=== PATIENT | female | born 1995 | race Hispanic/Latino ===

== ENCOUNTER 2018-04-19 07:43 | Inpatient (IN) | payer MEDICAID ==
[2018-04-19] MEDS ORDERED: CERVIDIL VG ONE ×2 (07:57→19:00)
--- NOTE | 2018-04-19 08:10 | History and Physical Report ---
History of Present Illness Date of examination: 04/19/18 Date of admission: 04/19/18 07:43 Chief complaint: IOL for pre-e superimposed on chtn @ 37 weeks per [facility] History of present illness: EDC Calculations LMP: 05/10/2018 Past History : 2 Term Births: 0 Living Children: 0 Para: 0 Spont. Ab: 1 Past Medical History: Diabetes ? Hypertension ? Anxiety Past Surgical History: negative Past Medical History Anesthesia Complications: negative Anemia: negative Autoimmune Disorder: negative Bleeding Disorder: negative Blood Transfusions: negative Breast Disease: negative Diabetes: negative Heart Disease: negative Hypertension: positive Hepatitis/Liver Disease: negative Kidney Disease/UTI: negative Neurologic/Epilepsy/Migraines: negative Phlebitis/Varicosities: negative Psychiatric: positive Pulmonary Disease/Asthma: negative Thyroid Disease: negative Hospitalizations: negative Surgery (Non-machine set up): negative Abnormal PAP: negative Family Hx: Mother - DM & HTN 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 of genital herpes: no Partner hx. of genital herpes: no Rash, Viral, or Febrile illness since last LMP? no Varicella/Chicken Pox Status: Immunized Genetic History Congenital Heart Defect: Mom: no Dad: no Norma Disease: Mom: no Dad: no Thalassemia Mom: no Dad: no Neural Tube Defect Mom: no Dad: no Down's Syndrome Mom: no Dad: no Feliciano-Sachs Mom: no Dad: no Sickle Cell Disease/Trait Mom: no Dad: no Hemophilia Mom: no Dad: no Muscular Dystrophy Mom: no Dad: no Cystic Fibrosis Mom: no Dad: no Chel Chorea Mom: no Dad: no Mental Retardation Mom: no Dad: no Fragile X Mom: no Dad: no Other Genetic/Chromosomal Disorder Mom: no Dad: no Child w/other defect Mom: no Dad: no Enviromental Exposures Xray Exposure: no Medication, drug, or alcohol use since LMP: no Chemical/Other Exposure: no Exposure to Cat Liter: no Hx of Parvovirus (Fifth Disease): no Occupational Exposure to Children: none Active Medications: MACROBID 100 MG ORAL CAPSULE (NITROFURANTOIN MONOHYD MACRO) 1 bid po Current Allergies: * SULFA (Critical) * PENICILLAN (Critical) Past History Past Medical History: other (see HPI) Past Surgical History: other (see HPI) 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 Pt states she completed medication), other (see HPI) Family/Genetic History: other (see HPI) - Obstetrical History Expected Date of Delivery: 05/10/18 Actual Gestation: 37 Week(s) 0 Day(s) : 2 Para: 0 Hx # Term Pregnancies: 0 Number of Pregnancies: 0 Spontaneous Abortions: 1 Induced : 0 Number of Living Children: 0 Medications and Allergies Allergies Allergy/AdvReac Type Severity Reaction Status Date / Time Penicillins Allergy Hives Verified 04/19/18 09:16 Active Meds: Active Medications Dinoprostone (Cervidil) 10 mg VG ONCE ONE Stop: 04/19/18 07:58 Ephedrine Sulfate (Ephedrine Sulfate) 10 mg IV Q2M PRN PRN Reason: Hypotension Lactated Ringer's (Lactated Ringers) 1,000 mls @ 125 mls/hr IV DIRECT NICOLLE Oxytocin/Sodium Chloride (Pitocin/Ns 20 Unit/1000ml Drip) 20 units in 1,000 mls @ 125 mls/hr IV DIRECT NICOLLE Lidocaine (Xylocaine 2%) 20 ml INFILTRATI ONCE ONE Stop: 04/19/18 07:58 Mineral Oil (Mineral Oil) 30 ml PO QHS PRN PRN Reason: Constipation Ondansetron HCl (Zofran) 4 mg IV Q8H PRN PRN Reason: Nausea And Vomiting Terbutaline Sulfate (Brethine) 0.25 mg SUB-Q ONCE PRN PRN Reason: Hyperstimulation/Hypertonicity Review of Systems All systems: negative - Physical Exam Breasts: Positive: normal Cardiovascular: Regular rate Lungs: Positive: Clear to auscultation, Normal air movement Abdomen: Positive: normal appearance, soft Genitourinary (Female): Positive: normal external genitalia, normal perenium Vulva: both: normal Vagina: Positive: normal moisture Uterus: Positive: normal size, normal contour Anus/Rectum: Positive: normal perianal skin Extremities: Positive: normal Deep Tendon Reflex Grade: Normal +2 - Obstetrical FHR: category 1 Uterine Contraction Monitor Mode: External Cervical Dilatation: 1 (vertex) Cervical Effacement Percentage: 50 station: -2 Uterine Contraction Pattern: Irregular Uterine Tone Measurement Phase: Resting Uterine Contraction Intensity: Mild Results All other labs normal. Assessment and Plan 22 y/o @ 37+0 admitted for IOL d/t chtn w/ superimposed pre-e, advised IOL today by AMFM based on 24h urine with TP >300. GBS neg. Admission orders in EMR. Plan for serial IOL, active management pitocin today. Discussed nature of serial IOL and potential for IOL for several days before delivery. All questions addressed. - Patient Problems (1) Pre-eclampsia superimposed on chronic hypertension Current Visit: Yes Status: Acute (2) Seizure Current Visit: Yes Status: Acute Plan to address problem: treated with Keppra in the past but currently not on medication. pt did not f/u with neuro as directed. no known seizure activity during the (3) Anxiety Current Visit: Yes Status: Acute (4) 37 weeks gestation of Current Visit: Yes Status: Acute
[2018-04-19] MEDS ORDERED: ZOFRAN IV PRN (09:30)
[2018-04-19] MEDS ORDERED: BRETHINE SUB-Q PRN (09:30)
[2018-04-19] MEDS ORDERED: PITOCin/NS 30 UNIT/500ML 30 UNITS/500 ML BAG IV SCH (09:30)
[2018-04-19] MEDS ORDERED: MINERAL OIL PO PRN (09:30)
[2018-04-19] MEDS ORDERED: XYLOCAINE 2% INFILTRATI NR (09:30)
[2018-04-19] MEDS ORDERED: PITOCin/NS 20 UNIT/1000ML DRIP 20 UNITS/1,000 ML BAG IV SCH (09:30)
[2018-04-19 09:43] LABS: Hematocrit 30.7 % (30.3-42.9); Hemoglobin 10.7 gm/dl (10.1-14.3); Mean Corpuscular HGB Conc 35 % (30-34); Mean Corpuscular Volume 79 fl (79-97); Platelet Count 165 K/mm3 (140-440); Red Cell Distribution Width 13.6 % (13.2-15.2)
[2018-04-19] MEDS: LACTATED RINGERS 1,000 ML IV SCH (09:53)
[2018-04-19 10:08] LABS: Alanine Aminotransferase 11 units/L (7-56); Uric Acid 3.9 mg/dL (3.5-7.6)
[2018-04-19 10:29] LABS: Bilirubin,Urine NEG (Negative); Blood,Urine NEG (Negative); Color,Urine Straw (Yellow); Protein,Urine <15 mg/dL mg/dL (Negative); Urobilinogen,Urine < 2.0 mg/dL (<2.0)
[2018-04-19] MEDS ORDERED: TYLENOL PO ONE (13:12)
[2018-04-19] MEDS ORDERED: MAGNESIUM SULFATE 4GM/100ML 4 GM/100 ML BAG IV ONE (17:18)
--- NOTE | 2018-04-19 17:21 | Event Note ---
Date: 04/19/18 Called by RN due to pt having elevated blood pressures in the 160s/100s ranges. Will start MgSO4 at this time. If cx unchanged after pitcion for the balance of the day will d/c and do pericare, allow dinner and start cervidil there after. Plan of care d/w RN and provider will d/w plan of care as well and address and questions she may have.
[2018-04-19] MEDS: MAGNESIUM SULFATE 40GM/1000ML 40 GM/1,000 ML BAG IV SCH (18:23)
[2018-04-19] MEDS ORDERED: XYLOCAINE TOPICAL 2% 5ML TP ONE (19:05)
[2018-04-19] MEDS ORDERED: AMBIEN PO ONE (21:00)
--- NOTE | 2018-04-19 22:01 | Event Note ---
Date: 04/19/18 Brief episode of and maternal tachycardia noted for about 30 minutes. Good variability noted. Relieved with O2 and position change. Currently back at baseline of 150. Currently with cervidil in place and no sx of hyperstimulation noted. Currently Cat I tracing. Will con't to closely monitor.
[2018-04-20] MEDS ORDERED: PEPCID IV ONE (05:33)
[2018-04-20] MEDS ORDERED: PITOCin/NS 30 UNIT/500ML 30 UNITS/500 ML BAG IV SCH (08:00)
[2018-04-20] MEDS ORDERED: BICITRA PO ONE (08:45)
--- NOTE | 2018-04-20 10:56 | Progress Note ---
Assessment and Plan 22y/o dx with pre-e, cervidil removed. SVE unchanged. discussed options for IOL - pt verbalizes understanding and agreement with AROM. IUPC and ISE placed without difficulty. Clear fluid noted. Plan discussed for pitocin and epidural as needed. All questions addressed. Visitation policy reviewed - limit visitors and stimulus d/t elevated b/p. No more ambulating to bathroom while on mag sulfate. reviewed expectations for mag sulfate and resendez x 24h post delivery. All questions addressed, pt verbalized understanding. - Patient Problems (1) Pre-eclampsia superimposed on chronic hypertension Current Visit: Yes Status: Acute (2) Seizure Current Visit: Yes Status: Acute (3) Anxiety Current Visit: Yes Status: Acute (4) 37 weeks gestation of Current Visit: Yes Status: Acute Subjective - Subjective Date of service: 04/20/18 Principal diagnosis: IUP @ 37+1, pre-e, IOL Interval history: EDC Calculations LMP: 05/10/2018 Past History : 2 Term Births: 0 Living Children: 0 Para: 0 Spont. Ab: 1 Past Medical History: Diabetes ? Hypertension ? Anxiety Past Surgical History: negative Past Medical History Anesthesia Complications: negative Anemia: negative Autoimmune Disorder: negative Bleeding Disorder: negative Blood Transfusions: negative Breast Disease: negative Diabetes: negative Heart Disease: negative Hypertension: positive Hepatitis/Liver Disease: negative Kidney Disease/UTI: negative Neurologic/Epilepsy/Migraines: negative Phlebitis/Varicosities: negative Psychiatric: positive Pulmonary Disease/Asthma: negative Thyroid Disease: negative Hospitalizations: negative Surgery (Non-armorer technician): negative Abnormal PAP: negative Family Hx: Mother - DM & HTN 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 of genital herpes: no Partner hx. of genital herpes: no Rash, Viral, or Febrile illness since last LMP? no Varicella/Chicken Pox Status: Immunized Genetic History Congenital Heart Defect: Mom: no Dad: no Norma Disease: Mom: no Dad: no Thalassemia Mom: no Dad: no Neural Tube Defect Mom: no Dad: no Down's Syndrome Mom: no Dad: no Feliciano-Sachs Mom: no Dad: no Sickle Cell Disease/Trait Mom: no Dad: no Hemophilia Mom: no Dad: no Muscular Dystrophy Mom: no Dad: no Cystic Fibrosis Mom: no Dad: no Page Chorea Mom: no Dad: no Mental Retardation Mom: no Dad: no Fragile X Mom: no Dad: no Other Genetic/Chromosomal Disorder Mom: no Dad: no Child w/other defect Mom: no Dad: no Enviromental Exposures Xray Exposure: no Medication, drug, or alcohol use since LMP: no Chemical/Other Exposure: no Exposure to Cat Liter: no Hx of Parvovirus (Fifth Disease): no Occupational Exposure to Children: none Active Medications: MACROBID 100 MG ORAL CAPSULE (NITROFURANTOIN MONOHYD MACRO) 1 bid po Current Allergies: * SULFA (Critical) * PENICILLAN (Critical) Patient reports: movement normal, other (substernal pain that radiated to back that may or may not feel like indigestion), no new complaints (denies GARCIA or visual changes) Objective - Vital Signs Vital Signs: Vital Signs - 12hr 04/19/18 04/19/18 04/19/18 22:53 22:55 22:58 Temperature Pulse Rate 109 H 109 H 108 H Respiratory Rate Blood Pressure 143/75 O2 Sat by Pulse 98 97 Oximetry 04/19/18 04/19/18 04/19/18 23:03 23:08 23:13 Temperature Pulse Rate 118 H 120 H 115 H Respiratory Rate Blood Pressure O2 Sat by Pulse 99 99 100 Oximetry 04/19/18 04/19/18 04/19/18 23:18 23:23 23:25 Temperature Pulse Rate 112 H 107 H 107 H Respiratory Rate Blood Pressure 150/68 O2 Sat by Pulse 100 100 Oximetry 04/19/18 04/19/18 04/19/18 23:28 23:33 23:38 Temperature Pulse Rate 110 H 103 H 114 H Respiratory Rate Blood Pressure O2 Sat by Pulse 100 100 100 Oximetry 04/19/18 04/19/18 04/19/18 23:43 23:48 23:53 Temperature Pulse Rate 110 H 118 H 120 H Respiratory Rate Blood Pressure O2 Sat by Pulse 100 100 100 Oximetry 04/19/18 04/19/18 04/20/18 23:56 23:58 00:03 Temperature Pulse Rate 110 H 121 H 111 H Respiratory Rate Blood Pressure 138/84 O2 Sat by Pulse 100 99 Oximetry 04/20/18 04/20/18 04/20/18 00:08 00:13 00:22 Temperature Pulse Rate 106 H 115 H 129 H Respiratory Rate Blood Pressure O2 Sat by Pulse 99 100 88 Oximetry 04/20/18 04/20/18 04/20/18 00:23 00:25 00:28 Temperature Pulse Rate 114 H 115 H 122 H Respiratory Rate Blood Pressure 125/77 O2 Sat by Pulse 98 98 Oximetry 04/20/18 04/20/18 04/20/18 00:33 00:38 00:43 Temperature Pulse Rate 121 H 125 H 116 H Respiratory Rate Blood Pressure O2 Sat by Pulse 98 98 98 Oximetry 04/20/18 04/20/18 04/20/18 00:48 00:53 00:55 Temperature Pulse Rate 121 H 124 H 113 H Respiratory Rate Blood Pressure 141/73 O2 Sat by Pulse 97 99 Oximetry 04/20/18 04/20/18 04/20/18 00:58 01:03 01:08 Temperature Pulse Rate 120 H 110 H 112 H Respiratory Rate Blood Pressure O2 Sat by Pulse 96 98 99 Oximetry 04/20/18 04/20/18 04/20/18 01:13 01:18 01:23 Temperature Pulse Rate 119 H 118 H 108 H Respiratory Rate Blood Pressure O2 Sat by Pulse 99 99 99 Oximetry 04/20/18 04/20/18 04/20/18 01:25 01:28 01:33 Temperature Pulse Rate 108 H 118 H 125 H Respiratory Rate Blood Pressure 146/87 O2 Sat by Pulse 98 99 Oximetry 04/20/18 04/20/18 04/20/18 01:38 01:43 01:48 Temperature Pulse Rate 108 H 120 H 111 H Respiratory Rate Blood Pressure O2 Sat by Pulse 100 100 100 Oximetry 04/20/18 04/20/18 04/20/18 01:53 01:55 01:59 Temperature Pulse Rate 113 H 104 H 140 H Respiratory Rate Blood Pressure 140/83 O2 Sat by Pulse 99 98 Oximetry 04/20/18 04/20/18 04/20/18 02:19 02:27 02:40 Temperature 98.7 F Pulse Rate 134 H 118 H Respiratory 18 Rate Blood Pressure 127/66 O2 Sat by Pulse 100 Oximetry 04/20/18 04/20/18 04/20/18 03:10 03:15 03:20 Temperature Pulse Rate 108 H 106 H 114 H Respiratory Rate Blood Pressure O2 Sat by Pulse 99 100 100 Oximetry 04/20/18 04/20/18 04/20/18 03:25 03:30 03:35 Temperature Pulse Rate 120 H 117 H 115 H Respiratory Rate Blood Pressure O2 Sat by Pulse 100 100 100 Oximetry 04/20/18 04/20/18 04/20/18 03:40 03:45 03:50 Temperature Pulse Rate 125 H 118 H 123 H Respiratory Rate Blood Pressure O2 Sat by Pulse 100 100 100 Oximetry 04/20/18 04/20/18 04/20/18 03:55 04:00 04:05 Temperature Pulse Rate 113 H 108 H 115 H Respiratory Rate Blood Pressure O2 Sat by Pulse 100 100 100 Oximetry 04/20/18 04/20/18 04/20/18 04:10 04:15 04:20 Temperature Pulse Rate 112 H 126 H 112 H Respiratory Rate Blood Pressure O2 Sat by Pulse 99 100 100 Oximetry 04/20/18 04/20/18 04/20/18 04:25 04:28 04:30 Temperature Pulse Rate 120 H 113 H 112 H Respiratory Rate Blood Pressure 150/86 O2 Sat by Pulse 99 98 Oximetry 04/20/18 04/20/18 04/20/18 04:35 04:40 04:45 Temperature Pulse Rate 105 H 117 H 110 H Respiratory Rate Blood Pressure O2 Sat by Pulse 97 98 98 Oximetry 04/20/18 04/20/18 04/20/18 04:50 04:55 05:00 Temperature Pulse Rate 102 H 142 H 108 H Respiratory Rate Blood Pressure O2 Sat by Pulse 98 99 100 Oximetry 04/20/18 04/20/18 04/20/18 05:05 05:10 05:15 Temperature Pulse Rate 114 H 108 H 118 H Respiratory Rate Blood Pressure O2 Sat by Pulse 98 100 100 Oximetry 04/20/18 04/20/18 04/20/18 05:20 05:25 05:29 Temperature Pulse Rate 109 H 107 H 107 H Respiratory Rate Blood Pressure 143/87 O2 Sat by Pulse 100 99 Oximetry 04/20/18 04/20/18 04/20/18 05:30 05:35 05:40 Temperature Pulse Rate 106 H 106 H 108 H Respiratory Rate Blood Pressure O2 Sat by Pulse 100 100 100 Oximetry 04/20/18 04/20/18 04/20/18 05:45 05:50 05:55 Temperature Pulse Rate 112 H 111 H 117 H Respiratory Rate Blood Pressure O2 Sat by Pulse 100 100 100 Oximetry 04/20/18 04/20/18 04/20/18 06:00 06:13 06:18 Temperature Pulse Rate 108 H 110 H 102 H Respiratory Rate Blood Pressure O2 Sat by Pulse 100 100 100 Oximetry 04/20/18 04/20/18 04/20/18 06:23 06:28 06:33 Temperature Pulse Rate 111 H 108 H 111 H Respiratory Rate Blood Pressure O2 Sat by Pulse 100 100 100 Oximetry 04/20/18 04/20/18 04/20/18 06:38 07:11 07:57 Temperature Pulse Rate 110 H 125 H 115 H Respiratory Rate Blood Pressure 129/74 143/98 O2 Sat by Pulse 99 Oximetry 04/20/18 04/20/18 04/20/18 07:58 08:03 08:08 Temperature Pulse Rate 108 H 99 H 99 H Respiratory Rate Blood Pressure O2 Sat by Pulse 96 97 98 Oximetry 04/20/18 04/20/18 04/20/18 08:13 08:18 08:23 Temperature Pulse Rate 105 H 104 H 98 H Respiratory Rate Blood Pressure O2 Sat by Pulse 98 98 99 Oximetry 04/20/18 04/20/18 04/20/18 08:28 08:33 08:38 Temperature Pulse Rate 105 H 103 H 94 H Respiratory Rate Blood Pressure 134/80 O2 Sat by Pulse 98 100 99 Oximetry 04/20/18 04/20/18 04/20/18 08:43 08:48 08:56 Temperature Pulse Rate 105 H 104 H 109 H Respiratory Rate Blood Pressure O2 Sat by Pulse 99 100 90 Oximetry 04/20/18 04/20/18 09:31 10:28 Temperature Pulse Rate 95 H 96 H Respiratory Rate Blood Pressure 155/90 138/89 O2 Sat by Pulse Oximetry - Exam Breasts: normal Cardiovascular: Regular rate Lungs: Clear to auscultation, Normal air movement Abdomen: Present: normal appearance, soft Vulva: both: normal Uterus: Present: normal FHR: auscultation normal, category 1 Uterine Contraction Monitor Mode: Internal Cervical Dilatation: 1.5 (AROM - ISE and IUPC placed) Cervical Effacement Percentage: 70 station: -1 Uterine Contraction Pattern: Irregular Uterine Tone Measurement Phase: Contraction Uterine Contraction Intensity: Mild Extremities: normal Deep Tendon Reflex Grade: Normal +2 - Labs Labs: Abnormal Labs 0204/19/18 04/19/18 08:45 08:45 10:12 MCH 27 L MCHC 35 H Creatinine 0.5 L Magnesium Lactate Dehydrogenase 241 H Urine pH 8.0 H 04/19/18 04/20/18 04/20/18 19:05 00:16 06:05 MCH MCHC Creatinine Magnesium 3.40 H 4.60 H 5.10 H Lactate Dehydrogenase Urine pH Laboratory Results - last 24 hr 04/19/18 04/19/18 04/20/18 08:45 19:05 00:16 Magnesium 3.40 H 4.60 H RPR Nonreactive 04/20/18 06:05 Magnesium 5.10 H RPR
[2018-04-20] MEDS ORDERED: MARCAINE 0.25% INFILTRATI ONE (11:59)
--- NOTE | 2018-04-20 12:14 | Anesthesia Consultation ---
Anesthesia Consult and Med Hx - Airway Anesthetic Teeth Evaluation: Good ROM Head & Neck: Adequate Mental/Hyoid Distance: Adequate Mallampati Class: Class II Intubation Access Assessment: Good - Pulmonary Exam CTA: Yes - Cardiac Exam Cardiac Exam: RRR - Pre-Operative Health Status ASA Pre-Surgery Classification: ASA2 Proposed Anesthetic Plan: Epidural - Pulmonary Hx Smoking: No Hx Asthma: No Hx Respiratory Symptoms: No SOB: No COPD: No Home Oxygen Therapy: No Hx Pneumonia: No Hx Sleep Apnea: No - Cardiovascular System Hx Hypertension: Yes Hx Coronary Artery Disease: No Hx Heart Attack/AMI: No Hx Angina: No Hx Percutaneous Transluminal Coronary Angioplasty (PTCA): No Hx Cardia Arrhythmia: No Hx Pacemaker: No Hx Internal Defibrillator: No Hx Valvular Heart Disease: No Hx Heart Murmur: No Hx Peripheral Vascular Disease: No - Central Nervous System Hx Neuromuscular Disorder: No Hx Seizures: Yes (last seizure "years ago") CVA: No Hx Back Pain: No Hx Psychiatric Problems: No - Gastrointestinal Hx Ulcer: No Hx Gastroesophageal Reflux Disease: Yes (with ) - Endocrine Hx Renal Disease: No Hx End Stage Renal Disease: No Hx Cirrhosis: No Hx Liver Disease: No Hx Insulin Dependent Diabetes: No Hx Non-Insulin Dependent Diabetes: No Hx Thyroid Disease: No Hx Hypothyroidism: No Hx Hyperthyroidism: No - Hematic Hx Anemia: Yes Hx Sickle Cell Disease: No - Other Systems Hx Alcohol Use: No Hx Substance Use: No Hx Cancer: No Hx Obesity: Yes (bmi 36)
[2018-04-20] MEDS ORDERED: BENADRYL IV PRN (12:15)
[2018-04-20] MEDS ORDERED: NARCAN 2 MG/2 ML IV PRN (12:15)
--- NOTE | 2018-04-20 12:44 | Progress Note ---
Assessment and Plan Patient resting, comfortable s/p epidural. Encouraged pt to rest while comfortable. Will continue to titrate pitocin as needed for adequate labor. IUPC working well, ISE not reading FHT, external monitor currently in place. Mag continues @ 2gm/hr. Dow to BSB. Will continue to monitor. - Patient Problems (1) Pre-eclampsia superimposed on chronic hypertension Current Visit: Yes Status: Acute (2) Seizure Current Visit: Yes Status: Acute (3) Anxiety Current Visit: Yes Status: Acute (4) 37 weeks gestation of Current Visit: Yes Status: Acute Subjective - Subjective Date of service: 04/20/18 Principal diagnosis: IUP @ 37+1, pre-e, IOL Interval history: EDC Calculations LMP: 05/10/2018 Past History : 2 Term Births: 0 Living Children: 0 Para: 0 Spont. Ab: 1 Past Medical History: Diabetes ? Hypertension ? Anxiety Past Surgical History: negative Past Medical History Anesthesia Complications: negative Anemia: negative Autoimmune Disorder: negative Bleeding Disorder: negative Blood Transfusions: negative Breast Disease: negative Diabetes: negative Heart Disease: negative Hypertension: positive Hepatitis/Liver Disease: negative Kidney Disease/UTI: negative Neurologic/Epilepsy/Migraines: negative Phlebitis/Varicosities: negative Psychiatric: positive Pulmonary Disease/Asthma: negative Thyroid Disease: negative Hospitalizations: negative Surgery (Non-exhaust emissions inspector): negative Abnormal PAP: negative Family Hx: Mother - DM & HTN 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 of genital herpes: no Partner hx. of genital herpes: no Rash, Viral, or Febrile illness since last LMP? no Varicella/Chicken Pox Status: Immunized Genetic History Congenital Heart Defect: Mom: no Dad: no Norma Disease: Mom: no Dad: no Thalassemia Mom: no Dad: no Neural Tube Defect Mom: no Dad: no Down's Syndrome Mom: no Dad: no Feliciano-Sachs Mom: no Dad: no Sickle Cell Disease/Trait Mom: no Dad: no Hemophilia Mom: no Dad: no Muscular Dystrophy Mom: no Dad: no Cystic Fibrosis Mom: no Dad: no [place] Chorea Mom: no Dad: no Mental Retardation Mom: no Dad: no Fragile X Mom: no Dad: no Other Genetic/Chromosomal Disorder Mom: no Dad: no Child w/other defect Mom: no Dad: no Enviromental Exposures Xray Exposure: no Medication, drug, or alcohol use since LMP: no Chemical/Other Exposure: no Exposure to Cat Liter: no Hx of Parvovirus (Fifth Disease): no Occupational Exposure to Children: none Active Medications: MACROBID 100 MG ORAL CAPSULE (NITROFURANTOIN MONOHYD MACRO) 1 bid po Current Allergies: * SULFA (Critical) * PENICILLAN (Critical) Patient reports: no new complaints (denies GARCIA or visual changes, comfortable s/p epidural) Objective - Vital Signs Vital Signs: Vital Signs - 12hr 04/20/18 04/20/18 04/20/18 00:38 00:43 00:48 Temperature Pulse Rate 125 H 116 H 121 H Respiratory Rate Blood Pressure O2 Sat by Pulse 98 98 97 Oximetry 04/20/18 04/20/18 04/20/18 00:53 00:55 00:58 Temperature Pulse Rate 124 H 113 H 120 H Respiratory Rate Blood Pressure 141/73 O2 Sat by Pulse 99 96 Oximetry 04/20/18 04/20/18 04/20/18 01:03 01:08 01:13 Temperature Pulse Rate 110 H 112 H 119 H Respiratory Rate Blood Pressure O2 Sat by Pulse 98 99 99 Oximetry 04/20/18 04/20/18 04/20/18 01:18 01:23 01:25 Temperature Pulse Rate 118 H 108 H 108 H Respiratory Rate Blood Pressure 146/87 O2 Sat by Pulse 99 99 Oximetry 04/20/18 04/20/18 04/20/18 01:28 01:33 01:38 Temperature Pulse Rate 118 H 125 H 108 H Respiratory Rate Blood Pressure O2 Sat by Pulse 98 99 100 Oximetry 04/20/18 04/20/18 04/20/18 01:43 01:48 01:53 Temperature Pulse Rate 120 H 111 H 113 H Respiratory Rate Blood Pressure O2 Sat by Pulse 100 100 99 Oximetry 04/20/18 04/20/18 04/20/18 01:55 01:59 02:19 Temperature Pulse Rate 104 H 140 H 134 H Respiratory Rate Blood Pressure 140/83 O2 Sat by Pulse 98 100 Oximetry 04/20/18 04/20/18 04/20/18 02:27 02:40 03:10 Temperature 98.7 F Pulse Rate 118 H 108 H Respiratory 18 Rate Blood Pressure 127/66 O2 Sat by Pulse 99 Oximetry 04/20/18 04/20/18 04/20/18 03:15 03:20 03:25 Temperature Pulse Rate 106 H 114 H 120 H Respiratory Rate Blood Pressure O2 Sat by Pulse 100 100 100 Oximetry 04/20/18 04/20/18 04/20/18 03:30 03:35 03:40 Temperature Pulse Rate 117 H 115 H 125 H Respiratory Rate Blood Pressure O2 Sat by Pulse 100 100 100 Oximetry 04/20/18 04/20/18 04/20/18 03:45 03:50 03:55 Temperature Pulse Rate 118 H 123 H 113 H Respiratory Rate Blood Pressure O2 Sat by Pulse 100 100 100 Oximetry 04/20/18 04/20/18 04/20/18 04:00 04:05 04:10 Temperature Pulse Rate 108 H 115 H 112 H Respiratory Rate Blood Pressure O2 Sat by Pulse 100 100 99 Oximetry 04/20/18 04/20/18 04/20/18 04:15 04:20 04:25 Temperature Pulse Rate 126 H 112 H 120 H Respiratory Rate Blood Pressure O2 Sat by Pulse 100 100 99 Oximetry 04/20/18 04/20/18 04/20/18 04:28 04:30 04:35 Temperature Pulse Rate 113 H 112 H 105 H Respiratory Rate Blood Pressure 150/86 O2 Sat by Pulse 98 97 Oximetry 04/20/18 04/20/18 04/20/18 04:40 04:45 04:50 Temperature Pulse Rate 117 H 110 H 102 H Respiratory Rate Blood Pressure O2 Sat by Pulse 98 98 98 Oximetry 04/20/18 04/20/18 04/20/18 04:55 05:00 05:05 Temperature Pulse Rate 142 H 108 H 114 H Respiratory Rate Blood Pressure O2 Sat by Pulse 99 100 98 Oximetry 04/20/18 04/20/18 04/20/18 05:10 05:15 05:20 Temperature Pulse Rate 108 H 118 H 109 H Respiratory Rate Blood Pressure O2 Sat by Pulse 100 100 100 Oximetry 04/20/18 04/20/18 04/20/18 05:25 05:29 05:30 Temperature Pulse Rate 107 H 107 H 106 H Respiratory Rate Blood Pressure 143/87 O2 Sat by Pulse 99 100 Oximetry 04/20/18 04/20/18 04/20/18 05:35 05:40 05:45 Temperature Pulse Rate 106 H 108 H 112 H Respiratory Rate Blood Pressure O2 Sat by Pulse 100 100 100 Oximetry 04/20/18 04/20/18 04/20/18 05:50 05:55 06:00 Temperature Pulse Rate 111 H 117 H 108 H Respiratory Rate Blood Pressure O2 Sat by Pulse 100 100 100 Oximetry 04/20/18 04/20/18 04/20/18 06:13 06:18 06:23 Temperature Pulse Rate 110 H 102 H 111 H Respiratory Rate Blood Pressure O2 Sat by Pulse 100 100 100 Oximetry 04/20/18 04/20/18 04/20/18 06:28 06:33 06:38 Temperature Pulse Rate 108 H 111 H 110 H Respiratory Rate Blood Pressure O2 Sat by Pulse 100 100 99 Oximetry 04/20/18 04/20/18 04/20/18 07:11 07:57 07:58 Temperature Pulse Rate 125 H 115 H 108 H Respiratory Rate Blood Pressure 129/74 143/98 O2 Sat by Pulse 96 Oximetry 04/20/18 04/20/18 04/20/18 08:03 08:08 08:13 Temperature Pulse Rate 99 H 99 H 105 H Respiratory Rate Blood Pressure O2 Sat by Pulse 97 98 98 Oximetry 04/20/18 04/20/18 04/20/18 08:18 08:23 08:28 Temperature Pulse Rate 104 H 98 H 105 H Respiratory Rate Blood Pressure 134/80 O2 Sat by Pulse 98 99 98 Oximetry 04/20/18 04/20/18 04/20/18 08:33 08:38 08:43 Temperature Pulse Rate 103 H 94 H 105 H Respiratory Rate Blood Pressure O2 Sat by Pulse 100 99 99 Oximetry 04/20/18 04/20/18 04/20/18 08:48 08:56 09:31 Temperature Pulse Rate 104 H 109 H 95 H Respiratory Rate Blood Pressure 155/90 O2 Sat by Pulse 100 90 Oximetry 04/20/18 04/20/18 04/20/18 10:28 11:28 11:58 Temperature Pulse Rate 96 H 94 H 117 H Respiratory Rate Blood Pressure 138/89 152/91 O2 Sat by Pulse 0 L Oximetry 04/20/18 04/20/18 04/20/18 11:59 12:03 12:04 Temperature Pulse Rate 107 H 111 H 113 H Respiratory Rate Blood Pressure 143/97 O2 Sat by Pulse 92 98 Oximetry 04/20/18 04/20/18 04/20/18 12:08 12:09 12:10 Temperature Pulse Rate 117 H 113 H 118 H Respiratory Rate Blood Pressure 139/94 159/77 O2 Sat by Pulse 100 Oximetry 04/20/18 04/20/18 04/20/18 12:13 12:14 12:16 Temperature Pulse Rate 115 H 108 H 122 H Respiratory Rate Blood Pressure 144/79 144/81 O2 Sat by Pulse 99 Oximetry 04/20/18 04/20/18 04/20/18 12:19 12:22 12:24 Temperature Pulse Rate 103 H 96 H 115 H Respiratory Rate Blood Pressure 137/64 106/56 O2 Sat by Pulse 100 98 Oximetry 04/20/18 04/20/18 04/20/18 12:25 12:28 12:29 Temperature Pulse Rate 112 H 102 H 102 H Respiratory Rate Blood Pressure 100/55 111/60 O2 Sat by Pulse 99 Oximetry 04/20/18 12:31 Temperature Pulse Rate 102 H Respiratory Rate Blood Pressure 113/66 O2 Sat by Pulse Oximetry - Exam Breasts: normal Cardiovascular: Regular rate Lungs: Clear to auscultation, Normal air movement Abdomen: Present: normal appearance, soft, normal bowel sounds Vulva: both: normal Uterus: Present: normal FHR: category 1 Uterine Contraction Monitor Mode: External Cervical Dilatation: 2.5 (clear/blood tinged fluid) Cervical Effacement Percentage: 70 station: -1 Uterine Contraction Frequency (min): 3-4 Uterine Contraction Duration: 50 Uterine Contraction Pattern: Regular Uterine Tone Measurement Phase: Contraction Uterine Contraction Intensity: Mild Extremities: normal Deep Tendon Reflex Grade: Normal +2 - Labs Labs: Abnormal Labs 04/19/18 04/19/18 04/19/18 08:45 08:45 10:12 MCH 27 L MCHC 35 H Creatinine 0.5 L Magnesium Lactate Dehydrogenase 241 H Urine pH 8.0 H 04/19/18 04/20/18 04/20/18 19:05 00:16 06:05 MCH MCHC Creatinine Magnesium 3.40 H 4.60 H 5.10 H Lactate Dehydrogenase Urine pH Laboratory Results - last 24 hr 04/19/18 04/19/18 04/20/18 08:45 19:05 00:16 Magnesium 3.40 H 4.60 H RPR Nonreactive 04/20/18 06:05 Magnesium 5.10 H RPR
[2018-04-20] MEDS ORDERED: fentaNYL-BUPIV 2 MCG/ML-0.125% 200 MCG/100 ML BAG EPIDURAL SCH (13:00)
[2018-04-20] MEDS: MAGNESIUM SULFATE 40GM/1000ML 40 GM/1,000 ML BAG IV SCH (14:30)
[2018-04-20] MEDS: LACTATED RINGERS 1,000 ML IV SCH (17:41)
[2018-04-20] MEDS ORDERED: LIDOCAINE 1.5%/EPI 1:200,000 INFILTRATI ONE (18:33)
--- NOTE | 2018-04-20 18:46 | Progress Note ---
Assessment and Plan Patient feeling vaginal pressure and vaginal pain during ctx. SVE with significant change since last SVE. Will have anesthesia redose. Discussed with patient importance of frequent position changes. - Patient Problems (1) Pre-eclampsia superimposed on chronic hypertension Current Visit: Yes Status: Acute (2) Seizure Current Visit: Yes Status: Acute (3) Anxiety Current Visit: Yes Status: Acute (4) 37 weeks gestation of Current Visit: Yes Status: Acute Subjective - Subjective Date of service: 04/20/18 Principal diagnosis: IUP @ 37+1, pre-e, IOL Interval history: EDC Calculations LMP: 05/10/2018 Past History : 2 Term Births: 0 Living Children: 0 Para: 0 Spont. Ab: 1 Past Medical History: Diabetes ? Hypertension ? Anxiety Past Surgical History: negative Past Medical History Anesthesia Complications: negative Anemia: negative Autoimmune Disorder: negative Bleeding Disorder: negative Blood Transfusions: negative Breast Disease: negative Diabetes: negative Heart Disease: negative Hypertension: positive Hepatitis/Liver Disease: negative Kidney Disease/UTI: negative Neurologic/Epilepsy/Migraines: negative Phlebitis/Varicosities: negative Psychiatric: positive Pulmonary Disease/Asthma: negative Thyroid Disease: negative Hospitalizations: negative Surgery (Non-tanning salon attendant): negative Abnormal PAP: negative Family Hx: Mother - DM & HTN 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 of genital herpes: no Partner hx. of genital herpes: no Rash, Viral, or Febrile illness since last LMP? no Varicella/Chicken Pox Status: Immunized Genetic History Congenital Heart Defect: Mom: no Dad: no Norma Disease: Mom: no Dad: no Thalassemia Mom: no Dad: no Neural Tube Defect Mom: no Dad: no Down's Syndrome Mom: no Dad: no Feliciano-Sachs Mom: no Dad: no Sickle Cell Disease/Trait Mom: no Dad: no Hemophilia Mom: no Dad: no Muscular Dystrophy Mom: no Dad: no Cystic Fibrosis Mom: no Dad: no [place] Chorea Mom: no Dad: no Mental Retardation Mom: no Dad: no Fragile X Mom: no Dad: no Other Genetic/Chromosomal Disorder Mom: no Dad: no Child w/other defect Mom: no Dad: no Enviromental Exposures Xray Exposure: no Medication, drug, or alcohol use since LMP: no Chemical/Other Exposure: no Exposure to Cat Liter: no Hx of Parvovirus (Fifth Disease): no Occupational Exposure to Children: none Active Medications: MACROBID 100 MG ORAL CAPSULE (NITROFURANTOIN MONOHYD MACRO) 1 bid po Current Allergies: * SULFA (Critical) * PENICILLAN (Critical) Patient reports: no new complaints (denies GARCIA or visual changes, comfortable s/p epidural) Objective - Vital Signs Vital Signs: Vital Signs - 12hr 04/20/18 04/20/18 04/20/18 07:11 07:57 07:58 Pulse Rate 125 H 115 H 108 H Blood Pressure 129/74 143/98 O2 Sat by Pulse 96 Oximetry 04/20/18 04/20/18 04/20/18 08:03 08:08 08:13 Pulse Rate 99 H 99 H 105 H Blood Pressure O2 Sat by Pulse 97 98 98 Oximetry 04/20/18 04/20/18 04/20/18 08:18 08:23 08:28 Pulse Rate 104 H 98 H 105 H Blood Pressure 134/80 O2 Sat by Pulse 98 99 98 Oximetry 04/20/18 04/20/18 04/20/18 08:33 08:38 08:43 Pulse Rate 103 H 94 H 105 H Blood Pressure O2 Sat by Pulse 100 99 99 Oximetry 04/20/18 04/20/18 04/20/18 08:48 08:56 09:31 Pulse Rate 104 H 109 H 95 H Blood Pressure 155/90 O2 Sat by Pulse 100 90 Oximetry 04/20/18 04/20/18 04/20/18 10:28 11:28 11:58 Pulse Rate 96 H 94 H 117 H Blood Pressure 138/89 152/91 O2 Sat by Pulse 0 L Oximetry 04/20/18 04/20/18 04/20/18 11:59 12:03 12:04 Pulse Rate 107 H 111 H 113 H Blood Pressure 143/97 O2 Sat by Pulse 92 98 Oximetry 04/20/18 04/20/18 04/20/18 12:08 12:09 12:10 Pulse Rate 117 H 113 H 118 H Blood Pressure 139/94 159/77 O2 Sat by Pulse 100 Oximetry 04/20/18 04/20/18 04/20/18 12:13 12:14 12:16 Pulse Rate 115 H 108 H 122 H Blood Pressure 144/79 144/81 O2 Sat by Pulse 99 Oximetry 04/20/18 04/20/18 04/20/18 12:19 12:22 12:24 Pulse Rate 103 H 96 H 115 H Blood Pressure 137/64 106/56 O2 Sat by Pulse 100 98 Oximetry 04/20/18 04/20/18 04/20/18 12:25 12:28 12:29 Pulse Rate 112 H 102 H 102 H Blood Pressure 100/55 111/60 O2 Sat by Pulse 99 Oximetry 04/20/18 04/20/18 04/20/18 12:31 12:34 12:39 Pulse Rate 102 H 120 H 104 H Blood Pressure 113/66 117/77 O2 Sat by Pulse 100 100 Oximetry 04/20/18 04/20/18 04/20/18 12:44 12:49 12:51 Pulse Rate 104 H 100 H 94 H Blood Pressure 138/84 O2 Sat by Pulse 100 100 Oximetry 04/20/18 04/20/18 04/20/18 12:52 12:54 12:59 Pulse Rate 100 H 95 H 103 H Blood Pressure 139/80 O2 Sat by Pulse 100 100 Oximetry 04/20/18 04/20/18 04/20/18 13:04 13:06 13:09 Pulse Rate 91 H 89 98 H Blood Pressure 143/68 O2 Sat by Pulse 100 100 Oximetry 04/20/18 04/20/18 04/20/18 13:14 13:23 13:28 Pulse Rate 93 H 91 H 102 H Blood Pressure O2 Sat by Pulse 100 100 100 Oximetry 04/20/18 04/20/18 04/20/18 13:32 13:36 13:52 Pulse Rate 101 H 89 82 Blood Pressure 137/83 139/81 125/70 O2 Sat by Pulse Oximetry 04/20/18 04/20/18 04/20/18 14:37 15:08 16:08 Pulse Rate 86 75 97 H Blood Pressure 123/61 113/55 127/68 O2 Sat by Pulse Oximetry 04/20/18 04/20/18 04/20/18 16:37 17:09 17:39 Pulse Rate 78 91 H 80 Blood Pressure 134/83 127/89 139/77 O2 Sat by Pulse Oximetry 04/20/18 04/20/18 18:08 18:38 Pulse Rate 86 95 H Blood Pressure 138/66 141/79 O2 Sat by Pulse Oximetry - Exam Breasts: normal Cardiovascular: Regular rate Lungs: Clear to auscultation, Normal air movement Abdomen: Present: normal appearance, soft, normal bowel sounds Vulva: both: normal Uterus: Present: normal FHR: auscultation normal, category 1 Uterine Contraction Monitor Mode: External Cervical Dilatation: 6.5 Cervical Effacement Percentage: 90 station: -1 Uterine Contraction Frequency (min): 3-4 Uterine Contraction Duration: 60 Uterine Contraction Pattern: Regular Uterine Tone Measurement Phase: Contraction Uterine Contraction Intensity: Strong/Firm Extremities: normal Deep Tendon Reflex Grade: Normal +2 - Labs Labs: Abnormal Labs 04/19/18 04/19/18 04/19/18 08:45 08:45 10:12 MCH 27 L MCHC 35 H Creatinine 0.5 L Magnesium Lactate Dehydrogenase 241 H Urine pH 8.0 H 04/19/18 04/20/18 04/20/18 19:05 00:16 06:05 MCH MCHC Creatinine Magnesium 3.40 H 4.60 H 5.10 H Lactate Dehydrogenase Urine pH 04/20/18 14:32 MCH MCHC Creatinine Magnesium 5.20 H Lactate Dehydrogenase Urine pH Laboratory Results - last 24 hr 04/19/18 04/20/18 04/20/18 19:05 00:16 06:05 Magnesium 3.40 H 4.60 H 5.10 H 04/20/18 14:32 Magnesium 5.20 H
[2018-04-20] MEDS ORDERED: CYTOTEC ONE (21:40)
--- NOTE | 2018-04-20 22:05 | Procedure Note ---
OB Delivery Note - Delivery Date of Delivery: 04/20/18 ( Male) Land Leveler: ELKE LIMA Estimated blood loss: 500cc - Vaginal Delivery presentation: vertex Delivery position: OA Intrapartum events: preeclampsia, uterine atony (on mag sulfate and pitocin x 12hours, resolved with Pit bolus and rectal cytotec) Delivery induction: cervidil Delivery augmentation: rupture of membranes, pitocin Delivery monitor: internal FHT, internal uterine Route of delivery: Delivery placenta: spontaneous Delivery cord: 3 umbilical vessels Episiotomy: none Delivery laceration: none Anesthesia: epidural Delivery comments: male del TIANNA over intact perineum. Infant placed skin to skin on mother's abd. 3 vessel cord clamped and cutt after cessation of pulsation. Placenta del intact and complete - sent to pathology. no lacerations to repair. Pit to IVF. Uterine atony post delivery of placenta - fundus firmed with massage but would then become boggy again. Cytotect 1000mcg per rectum placed. Along with with PIT bolus and fundal massage - fudal firm and lochia scant. total EBL 500. Wt 7#7oz, apgars 8/9. mother and baby remain LDR stable. - A at 1 minute: 8 (7#7 "Luke") at 5 minutes: 9 Gender: Male
[2018-04-20] MEDS ORDERED: CYTOTEC PR ONE (22:12)
[2018-04-20] MEDS ORDERED: MILK OF MAGNESIA PO PRN (22:14)
[2018-04-20] MEDS ORDERED: TUCKS PAD TP PRN (22:14)
[2018-04-20] MEDS ORDERED: PHENERGAN PO PRN (22:14)
[2018-04-20] MEDS ORDERED: LANSINOH TP PRN (22:14)
[2018-04-20] MEDS ORDERED: TYLENOL PO PRN (22:14)
[2018-04-20] MEDS ORDERED: DERMOPLAST TP PRN (22:14)
[2018-04-20] MEDS ORDERED: BENADRYL PO PRN (22:14)
[2018-04-20] MEDS ORDERED: DULCOLAX PR PRN (22:14)
[2018-04-20] MEDS ORDERED: SODIUM CHLORIDE FLUSH SYRINGE 10 ML IV NR (22:14)
[2018-04-20] MEDS: IBUPROFEN PO SCH (23:47)
[2018-04-21] MEDS: PERCOCET 5/325 PO PRN (01:07)
[2018-04-21] MEDS ORDERED: MAGNESIUM SULFATE 4GM/100ML 0 GM/0 ML BAG IV ONE (02:43)
[2018-04-21] MEDS ORDERED: NORMODYNE IV ONE (02:48)
[2018-04-21] MEDS ORDERED: LACTATED RINGERS 0 ML ONE (02:52)
[2018-04-21] MEDS ORDERED: SUBLIMAZE ONE (02:59)
[2018-04-21] MEDS ORDERED: BOOSTRIX IM ONE (06:00)
[2018-04-21] MEDS ORDERED: CYTOTEC PO ONE (06:00)
--- NOTE | 2018-04-21 07:10 | Progress Note ---
Assessment and Plan Patient resting and infant with support people in room. Lochia scant, fundus firm, H&H ordered for this morning. Patient denies GARCIA, visual changes or epigastric pain. b/p's 118-135/60-80's. plan to continue mag sulfate and resendez until 2130 tonight, then transfer to [facility]. - Patient Problems (1) Pre-eclampsia superimposed on chronic hypertension Current Visit: Yes Status: Acute (2) Seizure Current Visit: Yes Status: Acute (3) Anxiety Current Visit: Yes Status: Acute (4) (normal spontaneous vaginal delivery) Current Visit: Yes Status: Acute Subjective - Subjective Date of service: 04/21/18 Principal diagnosis: postop day #1 s/p , pre-e on mag sulfate Interval history: EDC Calculations LMP: 05/10/2018 Past History : 2 Term Births: 0 Living Children: 0 Para: 0 Spont. Ab: 1 Past Medical History: Diabetes ? Hypertension ? Anxiety Past Surgical History: negative Past Medical History Anesthesia Complications: negative Anemia: negative Autoimmune Disorder: negative Bleeding Disorder: negative Blood Transfusions: negative Breast Disease: negative Diabetes: negative Heart Disease: negative Hypertension: positive Hepatitis/Liver Disease: negative Kidney Disease/UTI: negative Neurologic/Epilepsy/Migraines: negative Phlebitis/Varicosities: negative Psychiatric: positive Pulmonary Disease/Asthma: negative Thyroid Disease: negative Hospitalizations: negative Surgery (Non-shift supervisor): negative Abnormal PAP: negative Family Hx: Mother - DM & HTN 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 of genital herpes: no Partner hx. of genital herpes: no Rash, Viral, or Febrile illness since last LMP? no Varicella/Chicken Pox Status: Immunized Genetic History Congenital Heart Defect: Mom: no Dad: no Norma Disease: Mom: no Dad: no Thalassemia Mom: no Dad: no Neural Tube Defect Mom: no Dad: no Down's Syndrome Mom: no Dad: no Feliciano-Sachs Mom: no Dad: no Sickle Cell Disease/Trait Mom: no Dad: no Hemophilia Mom: no Dad: no Muscular Dystrophy Mom: no Dad: no Cystic Fibrosis Mom: no Dad: no [place] Chorea Mom: no Dad: no Mental Retardation Mom: no Dad: no Fragile X Mom: no Dad: no Other Genetic/Chromosomal Disorder Mom: no Dad: no Child w/other defect Mom: no Dad: no Enviromental Exposures Xray Exposure: no Medication, drug, or alcohol use since LMP: no Chemical/Other Exposure: no Exposure to Cat Liter: no Hx of Parvovirus (Fifth Disease): no Occupational Exposure to Children: none Active Medications: MACROBID 100 MG ORAL CAPSULE (NITROFURANTOIN MONOHYD MACRO) 1 bid po Current Allergies: * SULFA (Critical) * PENICILLAN (Critical) Patient reports: appetite normal, pain well controlled, no nauseated Ellery: doing well, nursing well Objective - Vital Signs Latest vital signs: Vital Signs Pulse BP Pulse Ox 04/21/18 06:23 92 H 136/77 04/21/18 05:23 93 H 135/78 04/21/18 04:26 99 H 132/72 04/21/18 04:07 96 H 118/69 04/20/18 23:12 117 H 152/87 04/20/18 22:41 88 126/72 04/20/18 22:26 104 H 136/68 04/20/18 22:11 96 H 130/73 04/20/18 22:01 96 H 130/74 04/20/18 21:41 101 H 129/70 04/20/18 18:38 95 H 141/79 04/20/18 18:08 86 138/66 04/20/18 17:39 80 139/77 04/20/18 17:09 91 H 127/89 04/20/18 16:37 78 134/83 04/20/18 16:08 97 H 127/68 04/20/18 15:08 75 113/55 04/20/18 14:37 86 123/61 04/20/18 13:52 82 125/70 04/20/18 13:36 89 139/81 04/20/18 13:32 101 H 137/83 04/20/18 13:28 102 H 100 04/20/18 13:23 91 H 100 04/20/18 13:14 93 H 100 04/20/18 13:09 98 H 100 04/20/18 13:06 89 143/68 04/20/18 13:04 91 H 100 04/20/18 12:59 103 H 100 04/20/18 12:54 95 H 100 04/20/18 12:52 100 H 139/80 04/20/18 12:51 94 H 138/84 04/20/18 12:49 100 H 100 04/20/18 12:44 104 H 100 04/20/18 12:39 104 H 100 04/20/18 12:34 120 H 117/77 100 04/20/18 12:31 102 H 113/66 04/20/18 12:29 102 H 99 04/20/18 12:28 102 H 111/60 04/20/18 12:25 112 H 100/55 04/20/18 12:24 115 H 98 04/20/18 12:22 96 H 106/56 04/20/18 12:19 103 H 137/64 100 04/20/18 12:16 122 H 144/81 04/20/18 12:14 108 H 99 04/20/18 12:13 115 H 144/79 04/20/18 12:10 118 H 159/77 04/20/18 12:09 113 H 100 04/20/18 12:08 117 H 139/94 04/20/18 12:04 113 H 143/97 04/20/18 12:03 111 H 98 04/20/18 11:59 107 H 92 04/20/18 11:58 117 H 0 L 04/20/18 11:28 94 H 152/91 04/20/18 10:28 96 H 138/89 04/20/18 09:31 95 H 155/90 04/20/18 08:56 109 H 90 04/20/18 08:48 104 H 100 04/20/18 08:43 105 H 99 04/20/18 08:38 94 H 99 04/20/18 08:33 103 H 100 04/20/18 08:28 105 H 134/80 98 04/20/18 08:23 98 H 99 04/20/18 08:18 104 H 98 04/20/18 08:13 105 H 98 04/20/18 08:08 99 H 98 04/20/18 08:03 99 H 97 04/20/18 07:58 108 H 96 04/20/18 07:57 115 H 143/98 04/20/18 07:11 125 H 129/74 Intake and Output 04/20/18 04/20/18 04/21/18 15:59 23:59 07:59 Intake Total 1000 Output Total 900 2200 Balance 100 -2200 Intake: IV 1000 MAGNESIUM SULFATE 40GM/ 1000 1000ML 40 gm In 1,000 ml @ 2 GM/HR 50 mls/hr IV DIRECT NICOLLE Rx#:[id number] Output: Urine 900 2200 Indwelling Catheter 2200 Void 900 Other: Total, Output Amount 900 100 # Voids Void 2 Estimated Blood Loss 500 - Exam Breasts: Present: normal, Cardiovascular: Present: Regular rate Lungs: Present: Clear to auscultation, Normal air movement Abdomen: Present: normal appearance, soft Vulva: both: normal Uterus: Present: normal, firm, fundal height below umbilicus Extremities: Present: normal Deep Tendon Reflex Grade: Normal +2 - Labs Labs: Abnormal lab results 04/20/18 04/21/18 Range/Units 14:32 00:20 Magnesium 5.20 H 5.80 H (1.7-2.3) mg/dL
[2018-04-21] MEDS ORDERED: LACTATED RINGERS 1,000 ML ONE (09:38)
[2018-04-21] MEDS: LACTATED RINGERS 1,000 ML IV SCH (09:48)
[2018-04-21] MEDS: MAGNESIUM SULFATE 40GM/1000ML 40 GM/1,000 ML BAG IV SCH (09:49)
[2018-04-21] MEDS: IBUPROFEN PO SCH (09:49)
[2018-04-21] MEDS: COLACE PO SCH ×2 (11:16→21:42)
[2018-04-21] MEDS: FEOSOL PO SCH ×2 (11:16→21:43)
[2018-04-21] MEDS: PRENATAL VITAMIN PO SCH (11:17)
[2018-04-21 13:51] LABS: Hematocrit 24.1 % (30.3-42.9); Hemoglobin 8.1 gm/dl (10.1-14.3)
[2018-04-22] MEDS: PERCOCET 5/325 PO PRN (00:10)
[2018-04-22] MEDS: IBUPROFEN PO SCH ×3 (01:37→12:52)
[2018-04-22] MEDS ORDERED: BOOSTRIX IM ONE (06:35)
--- NOTE | 2018-04-22 09:52 | Discharge Summary ---
Providers - Providers Date of Admission: 04/19/18 07:43 Date of discharge: 04/22/18 (patient desires discharge today) Attending physician: NIA FAIRCHILD Primary care physician: INSTALLER SOFT TOP Hospitalization Reason for admission: IOL Pre-E, superimposed, CHTN Condition: Good Pertinent studies: post delivery H&H 8.1/24.1, asymptomatic, Iron Rx given Procedures: Hospital course: uncomplicated . Magnesium infusion x24 hours for pre-e superimposed, CHTN Disposition: DC-01 TO HOME OR SELFCARE Core Measure Documentation - Palliative Care Palliative Care/ Comfort Measures: Not Applicable - Core Measures Any of the following diagnoses?: none Exam - Constitutional Vitals: Temp Pulse Resp BP Pulse Ox 98.2 F 96 H 18 132/86 98 04/22/18 07:30 04/22/18 07:30 04/22/18 07:30 04/22/18 07:30 04/22/18 07:30 General appearance: Present: no acute distress, well-nourished - EENT Eyes: Present: PERRL ENT: hearing intact, clear oral mucosa - Neck Neck: Present: supple, normal ROM - Respiratory Respiratory effort: normal Respiratory: bilateral: CTA - Cardiovascular Rhythm: regular Heart Sounds: Present: S1 & S2. Absent: rub, click - Extremities Extremities: pulses symmetrical, No edema Peripheral Pulses: within normal limits - Abdominal General gastrointestinal: Present: soft, non-tender, non-distended, normal bowel sounds Female genitourinary: Present: normal - Integumentary Integumentary: Present: clear, warm, dry - Musculoskeletal Musculoskeletal: gait normal, strength equal bilaterally - Psychiatric Psychiatric: appropriate mood/affect, intact judgment & insight - Neurologic Neurologic: CNII-XII intact, moves all extremities - Additional findings Additional findings: Fundus firm, ML, U/2, bleeding scant. Patient reports pain is well controlled with medications. Denies dizziness or feeling faint with position changes or ambulation. PO labetalol started. Rx to go home with patient. Reviewed BPs and assessment with Dr. Noé MONTES for patient to DC home this evening, to follow up for BP check on Sunday. Pt reports breast feeding/pumping is going well, supplementing with formula as needed. Pt to call with any changes in assessment, questions, or concerns. Plan Activity: no restrictions Diet: regular Follow up with: PRIMARY CAREMD [Primary Care Provider] - 04/26/18 (Congratulations! Please call [phone] to schedule a BP check appointment on April 26. Please schedule your son's circumcision appointment for 1 week. Bring EMLA cream with you to his appointment and await further instructions for use. Call with any questions or concerns. ) Prescriptions: Ferrous Sulfate [Feosol 325 MG tab] 325 mg PO BID #60 tablet Ibuprofen [Motrin 800 MG tab] 800 mg PO Q8HR PRN #30 tablet PRN Reason: Pain Labetalol [Normodyne TAB] 200 mg PO BID #60 tablet Lidocain2.5%/Prilocai2.5% [Emla] 5 gm TP ONCE PRN #1 tube PRN Reason: Pain
[2018-04-22] MEDS: FEOSOL PO SCH (10:15)
[2018-04-22] MEDS: PRENATAL VITAMIN PO SCH (10:15)
[2018-04-22] MEDS: COLACE PO SCH (10:15)
[2018-04-22] MEDS: NORMODYNE PO SCH ×2 (10:19→14:00)
[2018-04-22] MEDS ORDERED: AFLURIA QUAD 2018-2019 SYRINGE IM ONE (12:00)
[2018-04-22 20:55] VITALS: BP 139/80
== END 2018-04-22 20:30 | disposition home or self-care (01) | DRG 774 ==
LOC: LD 07:43 → OB 04-21 22:20
PROVIDERS: ADMIT Obstetrics & Gynecology; ATTEND Obstetrics & Gynecology
PROC: 10E0XZZ Delivery of Products of Conception, External Approach (ICD-10-PCS; principal; 2018-04-20)
PROC: 10907ZC Drainage of Amniotic Fluid, Therapeutic from Products of Conception, Via Natural or Artificial Opening (ICD-10-PCS; 2018-04-20)
PROC: 3E0P7VZ Introduction of Hormone into Female Reproductive, Via Natural or Artificial Opening (ICD-10-PCS; 2018-04-20)
PROC: 3E0R3BZ Introduction of Anesthetic Agent into Spinal Canal, Percutaneous Approach (ICD-10-PCS; 2018-04-20)
PROC: 00HU33Z Insertion of Infusion Device into Spinal Canal, Percutaneous Approach (ICD-10-PCS; 2018-04-20)
PROC: 10H07YZ Insertion of Other Device into Products of Conception, Via Natural or Artificial Opening (ICD-10-PCS; 2018-04-20)
DX: O11.4 Pre-existing hypertension with pre-eclampsia, complicating childbirth (principal); O99.354 Diseases of the nervous system complicating childbirth; R56.9 Unspecified convulsions; O99.344 Other mental disorders complicating childbirth; F41.9 Anxiety disorder, unspecified; O99.62 Diseases of the digestive system complicating childbirth; K21.9 Gastro-esophageal reflux disease without esophagitis; O62.2 Other uterine inertia; O76 Abnormality in fetal heart rate and rhythm complicating labor and delivery; Z82.49 Family history of ischemic heart disease and other diseases of the circulatory system; Z83.3 Family history of diabetes mellitus; Z3A.37 37 weeks gestation of pregnancy; Z37.0 Single live birth; Z88.2 Allergy status to sulfonamides; Z88.0 Allergy status to penicillin
CPT/HCPCS: 36415; 59200; 81001; 82565; 83615; 83735; 84450; 84460; 84550; 85014; 85018; 85027; 86592; 86850; 86900; 86901; 88307; 90471; 90686; G0378; G0008; J2405; J2590; J3010; J3475; J7120

== ENCOUNTER 2018-04-26 10:56 | Inpatient (IN) | payer MEDICAID ==
[2018-04-26] MEDS ORDERED: NORMODYNE PO SCH ×2 (12:00→20:00)
--- NOTE | 2018-04-26 12:11 | History and Physical Report ---
History of Present Illness Date of examination: 04/26/18 Chief complaint: sent from office for blood pressure management, pre-e superimposed on chtn during third trimester History of present illness: 04/20/18, IOL for chtn w/ superimposed pre-e. received mag sulfate during labor and 24h . d/c home on Labetalol 200mg PO BID. Past History : 2 Term Births: 1 Living Children: 0 Para: 1 Spont. Ab: 1 Past Medical History: Hypertension Anxiety Past Surgical History: negative Past Medical History Anesthesia Complications: negative Anemia: negative Autoimmune Disorder: negative Bleeding Disorder: negative Blood Transfusions: negative Breast Disease: negative Diabetes: negative Heart Disease: negative Hypertension: positive Hepatitis/Liver Disease: negative Kidney Disease/UTI: negative Neurologic/Epilepsy/Migraines: negative Phlebitis/Varicosities: negative Psychiatric: positive Pulmonary Disease/Asthma: negative Thyroid Disease: negative Hospitalizations: negative Surgery (Non-sinter feeder): negative Abnormal PAP: negative Family Hx: Mother - DM & HTN 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 of genital herpes: no Partner hx. of genital herpes: no Rash, Viral, or Febrile illness since last LMP? no Varicella/Chicken Pox Status: Immunized Genetic History Congenital Heart Defect: Mom: no Dad: no Norma Disease: Mom: no Dad: no Thalassemia Mom: no Dad: no Neural Tube Defect Mom: no Dad: no Down's Syndrome Mom: no Dad: no Feliciano-Sachs Mom: no Dad: no Sickle Cell Disease/Trait Mom: no Dad: no Hemophilia Mom: no Dad: no Muscular Dystrophy Mom: no Dad: no Cystic Fibrosis Mom: no Dad: no [place] Chorea Mom: no Dad: no Mental Retardation Mom: no Dad: no Fragile X Mom: no Dad: no Other Genetic/Chromosomal Disorder Mom: no Dad: no Child w/other defect Mom: no Dad: no Enviromental Exposures Xray Exposure: no Medication, drug, or alcohol use since LMP: no Chemical/Other Exposure: no Exposure to Cat Liter: no Hx of Parvovirus (Fifth Disease): no Occupational Exposure to Children: none Active Medications: MACROBID 100 MG ORAL CAPSULE (NITROFURANTOIN MONOHYD MACRO) 1 bid po Current Allergies: * SULFA (Critical) Past History Past Medical History: other (see HPI) Past Surgical History: other (see HPI) 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 (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) Family/Genetic History: other (see HPI) - Obstetrical History : 2 Para: 1 Hx # Term Pregnancies: 1 Number of Pregnancies: 0 Spontaneous Abortions: 1 Induced : 0 Number of Living Children: 1 Medications and Allergies Allergies Allergy/AdvReac Type Severity Reaction Status Date / Time Penicillins Allergy Hives Verified 04/19/18 19:15 Sulfa (Sulfonamide AdvReac Vomiting Verified 04/19/18 19:15 Antibiotics) Home Medications Medication Instructions Recorded Confirmed Last Taken Type Pnv No.95/Ferrous Fum/Folic AC 1 tab PO DAILY 04/19/18 04/19/18 04/18/18 History [ Formula Tablet] Ferrous Sulfate [Feosol 325 MG tab] 325 mg PO BID #60 tablet 04/21/18 Unknown Rx Ibuprofen [Motrin 800 MG tab] 800 mg PO Q8HR PRN #30 tablet 04/21/18 Unknown Rx Lidocain2.5%/Prilocai2.5% [Emla] 5 gm TP ONCE PRN #1 tube 04/21/18 Unknown Rx Labetalol [Normodyne TAB] 200 mg PO BID #60 tablet 04/22/18 Unknown Rx Active Meds: Active Medications Labetalol HCl (Normodyne) 200 mg PO BID NICOLLE Review of Systems All systems: negative Eyes: no blurred vision Musculoskeletal: no neck stiffness, no neck pain Neurological: no seizures, no headaches - Physical Exam Breasts: Positive: normal Cardiovascular: Regular rate Lungs: Positive: Clear to auscultation, Normal air movement Abdomen: Positive: normal appearance, soft Results All other labs normal. Assessment and Plan 22y/o day #7 s/p . b/p elevated in office 160/110 and 160/98. pr denies GARCIA, visual changes or epigastric pain. Consulted with Dr. Brooks, plan to admit for b/p control. Admission orders in EMR. - Patient Problems (1) (normal spontaneous vaginal delivery) Status: Acute (2) Pre-eclampsia superimposed on chronic hypertension Status: Acute
[2018-04-26 13:33] LABS: Hematocrit 23.1 % (30.3-42.9); Hemoglobin 7.7 gm/dl (10.1-14.3); Mean Corpuscular HGB Conc 33 % (30-34); Mean Corpuscular Volume 82 fl (79-97); Platelet Count 266 K/mm3 (140-440); Red Blood Count 2.81 M/mm3 (3.65-5.03); Red Cell Distribution Width 14.2 % (13.2-15.2)
[2018-04-26 14:02] LABS: Alanine Aminotransferase 19 units/L (7-56); Uric Acid 4.4 mg/dL (3.5-7.6)
[2018-04-26] MEDS: LACTATED RINGERS 1,000 ML IV SCH (14:35)
--- NOTE | 2018-04-26 14:40 | Event Note ---
Date: 04/26/18 Patient resting in room, she denies GARCIA, visual changes or RUQ pain, no SOB or CP. Complains foul smelling urine and constipation Lungs CTA(B) Exts: LE +1 edema, DTRs2+; NT Abd soft NT Labs reviewed, Urine pending Will hold MgSO4 for now since labs are normal and she's asymptomatic Plan of care explained, questions encouraged and anssered, she voiced understanding and agrees with plan of care
[2018-04-26] MEDS ORDERED: APRESOLINE IV ONE (14:45)
[2018-04-26 14:55] LABS: Amphetamine Screen,Urine PRESUMPTIVE NEGATIVE; Benzodiazepines Screen,Urine PRESUMPTIVE NEGATIVE; Cannabinoid Screen,Urine PRESUMPTIVE NEGATIVE; Cocaine Screen,Urine PRESUMPTIVE NEGATIVE; Methadone Screen,Urine PRESUMPTIVE NEGATIVE; Opiate Screen,Urine PRESUMPTIVE NEGATIVE
[2018-04-26 14:57] LABS: Bacteria,Urine 3+ /HPF (Negative); Bilirubin,Urine NEG (Negative); Blood,Urine LG (Negative); Color,Urine Yellow (Yellow); Protein,Urine <15 mg/dL mg/dL (Negative); Urobilinogen,Urine < 2.0 mg/dL (<2.0)
[2018-04-26 14:58] LABS: WBC,Urine > 182.0 /HPF (0.0-6.0)
[2018-04-26] MEDS ORDERED: MILK OF MAGNESIA PO PRN (15:11)
[2018-04-26] MEDS: NORMODYNE PO SCH (20:05)
[2018-04-27] MEDS: LACTATED RINGERS 1,000 ML IV SCH (06:39)
--- NOTE | 2018-04-27 08:13 | Discharge Summary ---
Providers - Providers Date of Admission: 04/26/18 12:17 Date of discharge: 04/27/18 (pt req d/c if possible) Attending physician: JOSEPH GARCIA Primary care physician: JOSEPH GARCIA Hospitalization Reason for admission: PP elevated BP GHTN Condition: Good Hospital course: readmit from office with elevated BP GHTN Good response to increasing Labetalol to 300mg po BID Disposition: DC-01 TO HOME OR SELFCARE Core Measure Documentation - Palliative Care Palliative Care/ Comfort Measures: Not Applicable - Core Measures Any of the following diagnoses?: none - VTE Discharge Requirements Deep Vein Thrombosis/Pulmonary Embolism Present on Admission: No Has pt received <5 days of overlap therapy or INR<2.0: No Contraindication No Overlap Therapy order at DC: Not Indicated - Acute [place] Discharge Requirements Aspirin at discharge: No Reason for no aspirin on DC: Medical contraindication MARITZA/ARB for LVSD if EF <40%: Not Applicable Reason for no MARITZA/ARB: Medical contraindication Beta pantera at discharge: No Reason for no beta pantera on DC: Medical contraindication Statin for LDL = or >100 mg/dl on DC: Not Applicable Reason for no statin on DC: Medical contraindication - Heart Failure Discharge Requirements MARITZA/ARB for LVSD if EF <40%: Not Applicable Reason for no MARITZA/ARB: Medical contraindication Beta pantera at discharge: No Reason for no beta pantera on DC: Medical contraindication - Stroke Discharge Requirements Statin for LDL = or >70 mg/dl on DC: Not Applicable Reason for no statin on DC: Not Indicated Anticoag for atrial fib/atrial flutter: Not Applicable Reason for no anticoag for AF/F on DC: Not Indicated Antithrombotic for ischemic stroke: No Reason for no antithrombotic on DC: Not Indicated Exam - Constitutional Vitals: Temp Pulse Resp BP Pulse Ox 98.0 F 78 20 118/66 98 04/27/18 04:30 04/27/18 04:30 04/27/18 04:30 04/27/18 04:30 04/27/18 04:30 General appearance: Present: no acute distress, well-nourished - EENT Eyes: Present: PERRL ENT: hearing intact, clear oral mucosa - Neck Neck: Present: supple, normal ROM - Respiratory Respiratory effort: normal Respiratory: bilateral: CTA - Cardiovascular Heart Sounds: Present: S1 & S2. Absent: rub, click - Extremities Extremities: pulses symmetrical, No edema Peripheral Pulses: within normal limits - Abdominal General gastrointestinal: Present: soft, non-tender, non-distended, normal bowel sounds Female genitourinary: Present: normal - Rectal Rectal Exam: deferred - Integumentary Integumentary: Present: clear, warm, dry - Musculoskeletal Musculoskeletal: gait normal, strength equal bilaterally - Psychiatric Psychiatric: appropriate mood/affect, intact judgment & insight - Neurologic Neurologic: CNII-XII intact, moves all extremities Plan Activity: advance as tolerated Weight Bearing Status: Weight Bear as Tolerated Diet: low salt Follow up with: JOSEPH GARCIA MD [Primary Care Provider] - 04/30/18 11:15 am (Please take medication as prescribed. Call with headache, not relieved with Tylenol, blurred vision, chest pain. Keep appointment as scheduled for Sunday04-30-18 @ 11:15 in the [place] office. Call [phone] with concerns.) Prescriptions: Labetalol HCl 300 mg PO BID #60 tablet
[2018-04-27] MEDS: NORMODYNE PO SCH (08:30)
[2018-04-27 12:10] VITALS: BP 131/75
== END 2018-04-27 12:40 | disposition home or self-care (01) | DRG 776 ==
LOC: 3A 10:56 → UNDOADMIN 10:56 → OB 12:17
PROVIDERS: ADMIT Obstetrics & Gynecology; ATTEND Obstetrics & Gynecology
DX: O11.5 Pre-existing hypertension with pre-eclampsia, complicating the puerperium (principal); O99.63 Diseases of the digestive system complicating the puerperium; K59.00 Constipation, unspecified; Z83.3 Family history of diabetes mellitus; Z82.49 Family history of ischemic heart disease and other diseases of the circulatory system; Z87.891 Personal history of nicotine dependence; Z88.0 Allergy status to penicillin; Z88.2 Allergy status to sulfonamides
CPT/HCPCS: 36415; 80307; 81001; 82565; 83615; 84450; 84460; 84550; 85027; 87076; 87086; 87186; G0378; J0360; J7120

== ENCOUNTER 2020-03-10 11:35 | Outpatient (CLI) | payer OTHER ==
[2020-03-10] MEDS ORDERED: LACTATED RINGERS 500 ML IV ONE (12:25)
[2020-03-10] MEDS ORDERED: ACETAMINOPHEN 500 MG TAB PO ONE (12:27)
[2020-03-10 14:43] VITALS: BP 111/61
[2020-03-10 14:51] LABS: Bilirubin,Urine NEG (Negative); Blood,Urine NEG (Negative); Color,Urine Yellow (Yellow); Mucus,Urine 1+ /HPF
== END 2020-03-10 15:43 | disposition home or self-care (01) ==
LOC: TRG 11:35 → APU 11:35 → TRG 15:43
PROVIDERS: ATTEND Obstetrics & Gynecology
DX: O26.893 Other specified pregnancy related conditions, third trimester (principal); R10.9 Unspecified abdominal pain; Z3A.34 34 weeks gestation of pregnancy
CPT/HCPCS: 59025; 81001

== ENCOUNTER 2020-03-23 12:41 | Outpatient (CLI) | payer OTHER ==
--- NOTE | 2020-03-23 15:28 | Event Note ---
Date: 03/23/20 (pt states her covid test will result tomorrow) Pt called office with c/o cough and SOB Had a covid test yesterday Also reports not feeling the baby move X 2 days. BPP and DEANA ordered. Lungs some wheezing LL bilateral. Afebrile Pulse 113 Cat 1 tracing reactive NST. Pt says she's just anxious Consulted with Dr Boothe. BPP /8 DEANA 11. Pt d/c home She will call the office tomorrow to give us her covid result
[2020-03-23] MEDS ORDERED: LACTATED RINGERS 500 ML IV ONE (17:08)
[2020-03-23 17:28] VITALS: BP 135/82
--- NOTE | 2020-03-24 06:48 | Ultrasound Report ---
Limited OB ultrasound INDICATION: , DEANA FINDINGS: There is a single intrauterine in a cephalic presentation. The amniotic fluid ind ex is 11.5 cm which is within the normal range. heart rate is 140 bpm. BIOPHYSICAL PROFILE FINDINGS: breathing movement: 2/2 movement: 2/2 posture and tone: 2/2 Qualitative amniotic fluid volume: 2/2 IMPRESSION: Total score for biophysical profile is 8/8 heart rate is 140 bpm Signer Name: Sony Calderon MD Signed: 03/24/2020 6:43 AM Workstation Name: [id number]
== END 2020-03-23 17:21 | disposition home or self-care (01) ==
LOC: APU 12:41 → TRG 12:41
PROVIDERS: ATTEND Obstetrics & Gynecology
DX: O36.8130 Decreased fetal movements, third trimester, not applicable or unspecified (principal); Z3A.31 31 weeks gestation of pregnancy
CPT/HCPCS: 59025; 76815; 76819